=== PATIENT | female | born 1980 | race Caucasian/White ===

== ENCOUNTER 2024-05-26 15:48 | Emergency (ER) | payer OTHER ==
[~2024-05-26] VITALS: Ht 162.5 cm; Wt 127.0 kg
[~2024-05-26 15:48] MED LIST: ALDACTONE25 M1 PO; BUSPAR15 MG PO; CARVEDILOL ER20 MG PO; CLONIDINE HYDR0.1 MG PO; COREG25 MG PO; ENTRESTO 97 MG1 EACH PO; FUROSEMIDE40 MG PO; GEMFIBROZIL600 MG PO; K-TAB20 MEQ PO; LIPITOR40 MG PO; LYRICA100 M1 PO; METFORMIN HYD1000 MG PO; OMEPRAZOLE MAGN20 MG PO; PERCOCET 5-3251 EACH PO; SEROQUEL200 MG PO; Synthroid,Levo50 MCG PO; VISTARIL25 M2 PO
== END 2024-05-26 17:37 | disposition home or self-care (01) ==
LOC: ED 15:48
DX: S83.91XA Sprain of unspecified site of right knee, initial encounter (principal); M17.11 Unilateral primary osteoarthritis, right knee; I25.2 Old myocardial infarction; J44.9 Chronic obstructive pulmonary disease, unspecified; I11.0 Hypertensive heart disease with heart failure; I50.9 Heart failure, unspecified; E11.9 Type 2 diabetes mellitus without complications; F17.210 Nicotine dependence, cigarettes, uncomplicated; Z88.6 Allergy status to analgesic agent; Z88.5 Allergy status to narcotic agent; Z95.5 Presence of coronary angioplasty implant and graft; X58.XXXA Exposure to other specified factors, initial encounter; Y93.01 Activity, walking, marching and hiking; Y92.89 Other specified places as the place of occurrence of the external cause; Y99.0 Civilian activity done for income or pay